=== PATIENT | male | born 1995 | race Caucasian/White ===

== ENCOUNTER 2020-09-26 06:04 | Emergency (ER) | payer BC ==
[~2020-09-26] VITALS: Ht 182.9 cm; Wt 74.8 kg
[2020-09-26 06:12] VITALS: BP 116/70
--- NOTE | 2020-09-26 06:15 | NUR ---
TO LOBBY A/W BED AMBULATORY
--- NOTE | 2020-09-26 06:33 | NUR ---
PT TAKEN TO BED 11
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
--- NOTE | 2020-09-26 06:45 | NUR ---
NOTIFIED OF C-COLLAR PLACEMENT.
--- NOTE | 2020-09-26 06:59 | NUR ---
Dr. Brito examining patient.
--- NOTE | 2020-09-26 07:25 | NUR ---
ENDORSED CARE AND REPORT TO NAZANIN ZAPATA RN.
--- NOTE | 2020-09-26 07:27 | NUR ---
X-RAY AT BEDSIDE
[2020-09-26 07:35] LABS: BASOPHILS % (AUTO) 0.1 % (0.0-2.0); EOSINOPHILS % (AUTO) 0.1 % (0.0-4.0); HEMATOCRIT 42.2 % (36-52); HEMOGLOBIN 14.1 g/dL (12.0-18.0); LYMPHOCYTES # (AUTO) 1.5 K/uL (2.0-11.5); LYMPHOCYTES % (AUTO) 9.5 % (20.5-51.1); MEAN CORPUSCULAR HEMOGLOBIN 30 pg (27-31); MEAN CORPUSCULAR HGB CONC 34 g/dL (33-37); MEAN CORPUSCULAR VOLUME 88.7 fL (80-94); MONOCYTES % (AUTO) 6.5 % (1.7-9.3); NEUTROPHILS # (AUTO) 12.8 K/uL (1.8-7.7); NEUTROPHILS % (AUTO) 83.8 % (42.2-75.2); PLATELET COUNT (AUTO) 274 K/uL (140-450); RED BLOOD CELL COUNT(AUTO) 4.75 MIL/uL (4.20-6.10); RED CELL DISTRIBUTION WIDTH 13.4 % (11.6-13.7); WHITE BLOOD COUNT (AUTO) 15.3 K/uL (4.8-10.8)
[2020-09-26] MEDS: ACETAMINOPHEN EXTRA STRENGTH 500 MG TAB PO ONE (07:36)
[2020-09-26 07:47] LABS: ANION GAP 19.9 (8-16); CARBON DIOXIDE 23.6 mmol/L (21-32); CREATININE 0.9 mg/dL (0.6-1.3); POTASSIUM 4.5 mmol/L (3.5-5.1)
[2020-09-26 07:53] LABS: ALBUMIN 4.3 g/dL (3.4-5.0); TOTAL BILIRUBIN 0.3 mg/dL (0.0-1.0)
--- NOTE | 2020-09-26 08:33 | NUR ---
Patient taken to CT via gurney.
[2020-09-26] MEDS: BACITRACIN OINT 500 UNITS/GM PKT TP ONE (09:12)
[2020-09-26] MEDS: LIDOCAINE MPF 1% 10 MG/ML VIAL INJ ONE ×2 (09:12→10:12)
[2020-09-26] MEDS ORDERED: LIDOCAINE MPF 1% 5 ML ONE (09:59)
[2020-09-26] MEDS ORDERED: ACET-9525 PO (10:34)
[2020-09-26] MEDS ORDERED: NAPR-54 PO (10:34)
[2020-09-26] MEDS ORDERED: AMOX1TAB8 PO (10:34)
--- NOTE | 2020-09-26 10:37 | NUR ---
PT'S WOUND ON LEFT LOWER LEG WAS BANDAGED WITH BACITRACIN, NONADHERENT DRESSING, GAUZE ROLL AND KOFLEX. PT DENIED BANDAGE ON OTHER WOUNDS LOCATED ON LEFT LOWER ARM AND KNEE. ERMD NOTIFIED.
--- NOTE | 2020-09-26 10:45 | NUR ---
Patient discharged with v/s stable. Written and verbal after care instructions given and explained. Patient alert, oriented and verbalized understanding of instructions. Ambulatory with steady gait. All questions addressed prior to discharge. ID band removed. Patient advised to follow up with PMD. Rx of [place], Amoxicillin and Naproxen given. Patient educated on indication of medication including possible reaction and side effects. Opportunity to ask questions provided and answered.
[2020-09-26 10:49] VITALS: BP 114/61
== END 2020-09-26 10:45 | disposition home or self-care (01) ==
LOC: MED 06:04
DX: S81.812A Laceration without foreign body, left lower leg, initial encounter (principal); S63.501A Unspecified sprain of right wrist, initial encounter; S50.812A Abrasion of left forearm, initial encounter; S50.811A Abrasion of right forearm, initial encounter; S80.212A Abrasion, left knee, initial encounter; S80.211A Abrasion, right knee, initial encounter; S30.810A Abrasion of lower back and pelvis, initial encounter; S20.419A Abrasion of unspecified back wall of thorax, initial encounter; Z79.899 Other long term (current) drug therapy; V89.2XXA Person injured in unspecified motor-vehicle accident, traffic, initial encounter; Y93.89 Activity, other specified; Y92.89 Other specified places as the place of occurrence of the external cause; Y99.8 Other external cause status
CPT/HCPCS: 12011; 36415; 70450; 71045; 71260; 72125; 72170; 73110; 73562; 73590; 74177; 80053; 85025; 93005; 99285; J2001; Q9967

== ENCOUNTER 2022-05-18 20:48 | Emergency (ER) | payer BC, OTHER ==
[~2022-05-18] VITALS: Ht 182.9 cm; Wt 81.6 kg
[~2022-05-18 20:48] MED LIST: ACET-9525 PO; AMOX-1230 PO; NAPR-54 PO
[2022-05-18 21:09] VITALS: BP 125/70
--- NOTE | 2022-05-18 21:12 | NUR ---
TO LOBBY A/W BED AMBULATORY
[2022-05-18] MEDS ORDERED: KETOROLAC 30 MG/ML VIAL IM ONE (21:30)
[2022-05-18 21:51] LABS: BASOPHILS % (AUTO) 0.4 % (0.0-2.0); EOSINOPHILS % (AUTO) 0.1 % (0.0-4.0); HEMATOCRIT 41.1 % (36-52); HEMOGLOBIN 14.4 g/dL (12.0-18.0); LYMPHOCYTES # (AUTO) 0.7 K/uL (2.0-11.5); LYMPHOCYTES % (AUTO) 10.5 % (20.5-51.1); MEAN CORPUSCULAR HEMOGLOBIN 30 pg (27-31); MEAN CORPUSCULAR HGB CONC 35 g/dL (33-37); MEAN CORPUSCULAR VOLUME 86.6 fL (80-94); MONOCYTES # (AUTO) 0.5 K/uL (0.8-1.0); MONOCYTES % (AUTO) 6.6 % (1.7-9.3); NEUTROPHILS # (AUTO) 5.7 K/uL (1.8-7.7); NEUTROPHILS % (AUTO) 82.4 % (42.2-75.2); PLATELET COUNT (AUTO) 261 K/uL (140-450); RED BLOOD CELL COUNT(AUTO) 4.75 MIL/uL (4.20-6.10); RED CELL DISTRIBUTION WIDTH 12.5 % (11.6-13.7); WHITE BLOOD COUNT (AUTO) 6.9 K/uL (4.8-10.8)
[2022-05-18 22:16] LABS: ALBUMIN 4.8 g/dL (3.4-5.0); ANION GAP 13.2 (8-16); CREATININE 1.3 mg/dL (0.6-1.3); POTASSIUM 4.2 mmol/L (3.5-5.1); TOTAL BILIRUBIN 0.3 mg/dL (0.0-1.0)
[2022-05-18] MEDS ORDERED: BEN10 PO (22:42)
[2022-05-18] MEDS ORDERED: FAMO-90 PO (22:42)
[2022-05-18 22:45] VITALS: BP 125/70
--- NOTE | 2022-05-18 22:45 | NUR ---
Patient discharged with v/s stable. Written and verbal after care instructions given and explained. Patient alert, oriented and verbalized understanding of instructions. Ambulatory with steady gait. All questions addressed prior to discharge. ID band removed. Patient advised to follow up with PMD. Rx of BENTYL, PEPCID given. Patient educated on indication of medication including possible reaction and side effects. Opportunity to ask questions provided and answered.
== END 2022-05-18 22:45 | disposition home or self-care (01) ==
LOC: MED 20:48
DX: R10.9 Unspecified abdominal pain (principal); Z20.822 Contact with and (suspected) exposure to COVID-19; R51.9 Headache, unspecified; R19.7 Diarrhea, unspecified
CPT/HCPCS: 36415; 80053; 83690; 85025; 87426; 87804; 96372; 99283; J1885